=== PATIENT | male | born 1990 | race Native Hawaiian/Other Pacific Islander ===

== ENCOUNTER 2022-09-14 14:48 | Emergency (ER) | payer OTHER, SELFPAY ==
[2022-09-14] VITALS (8 sets, daily range): BP systolic 107–142; BP diastolic 74–88; PULSE 67–97; RESP 18; TEMP 36.6; O2SAT 95–98; BMI 35.5
--- NOTE | 2022-09-14 15:11 | CRLHL7_ITS ---
For Patients: As a result of the Century Cures Act, medical imaging exams and procedure reports are released immediately into your electronic medical record. You may view this report before your referring provider. If you have questions, please contact your health care provider. Indication: Lower cheek pain radiating to back of neck Technique: Volumetric multidetector CT images of the cervical soft tissues were obtained after the administration of low osmolar intravenous contrast. 100 cc Isovue 370 low osmolar intravenous contrast Comparison: None available. Findings: The partially visualized brain parenchyma is normal in attenuation without evidence of abnormal enhancement. The orbits and their contents are within normal limits. The paranasal sinuses are clear. The mastoid air cells are clear. The nasopharynx is unremarkable. The fossae of Rosenmuller are clear. There is trace mucosal prominence of the palatine tonsils without evidence of peritonsillar fluid collection. There is mild mucosal hypertrophy at the base of tongue and lingual mucosa. There is minimal left perimandibular superficial soft tissue swelling without evidence of discrete mass or obvious rim enhancing fluid. The vocal folds are nonthickened with symmetrical appearance. The thyroid gland is normal in attenuation. There are moderately enlarged left greater than right II and I lymph nodes. The jugular veins are patent. The carotid arteries demonstrate no significant atherosclerotic narrowing. The lung apices are clear. The cervical vertebral body heights are grossly maintained with mild straightening the normal cervical lordosis. There is no significant spondylolisthesis. Impression: Mild left perimandibular superficial soft tissue swelling without obvious adjacent apical root abscess or dental caries. Finding could represent minimal superficial cellulitis of the left facial subcutaneous soft tissues. Mild nonspecific thickening of the oropharyngeal and hypopharyngeal mucosa which may represent minimal pharyngitis changes. Reactive left greater than right cervical lymph nodes are appreciated without significant pathologic adenopathy. No evidence of rim enhancing fluid collection or mass. Please note that all CT scans at this facility use dose modulation, iterative reconstruction, and/or weight-based dosing when appropriate to reduce radiation dose to as low as reasonably achievable. Dictated by Owen Haddad MD @ 09/14/2022 4:53:40 PM (Electronically Signed)
--- NOTE | 2022-09-14 15:21 | ED_ITS ---
HPI - General Adult General Chief complaint: Unspecified Complaint, Adult Stated complaint: Can't feel half of face Time Seen by Provider: 09/14/22 15:05 Source: patient Mode of arrival: ambulatory Limitations: no limitations History of Present Illness HPI narrative: 32-year-old male coming in today complaining of pale the side of his face. He states that the pain started yesterday, located across the lower cheek on the left side. The entire area is so painful that it feels numb. He denies pain in his teeth. He says he does have difficult time opening closing the mouth secondary to discomfort in his cheek. No difficulty swallowing. No fevers or chills. Nothing seems to make it better or worse, it is constant. Again radiates across the lower cheek into his jaw down the superior part of his left neck. Patient is not take any medications. He denies any drug use, no tobacco. Denies any recent dental work. Related Data Home Medications Medication Instructions Recorded Confirmed ibuprofen 09/14/22 Allergies Allergy/AdvReac Type Severity Reaction Status Date / Time No Known Drug Allergies Allergy Verified 09/14/22 15:33 Review of Systems Status of ROS: Reports: 10 or more systems reviewed and unremarkable except as noted in History and below [facility] Social History Smoking Status: Never smoker How often do you have a drink containing alcohol: 2-4 times a month AUDIT-C Alcohol total score: 2 Exam Narrative: Exam Narrative: Well-nourished well-developed patient in no acute distress. Alert and oriented. Answers questions appropriately. Mood and affect are appropriate. Thoughts are goal oriented and rational. No tangential or magical thinking noted. Patient speaks in full sentences without needing to catch his breath. Voice is not slurred or pressured. Voice does not sound congested. HEENT: Normocephalic atraumatic. Pupils are equally round reactive to light. Extraocular muscles are intact. Conjunctivae are moist without any icterus noted. Moist mucous membranes. Posterior pharynx is normal. Soft palate without swelling or protrusion. Neck is soft without any lymphadenopathy or thyromegaly. No masses are appreciated. His teeth have normal appearance. His gums are without bogginess, swelling or erythema. Has tenderness to palpation of the buccal area where the gums meet the buccal mucosa. He also has some tenderness to palpation below the angle of the jaw. Patient is able to open and closed his mouth with good range of motion. Cardiovascular: Heart is regular rate and rhythm S1 and S2 are present without any murmurs. Lungs: Clear to auscultation bilaterally no wheezes rhonchi or rales are appreciated. Skin: Well perfused without any obvious rashes. Const: Vital Signs, click to edit/add: Vital Signs - 24 hr 09/14/22 14:54 Temperature 97.8 F Pulse Rate [Left P ulse Oximeter] 97 Respiratory Rate 18 Blood Pressure [Ri ght Upper Arm] 142/88 H Pulse Oximetry 97 Oxygen Delivery Me thod Room Air Course Course Hospital Course: Labs were drawn, were unremarkable aside from minimally elevated CRP 1.7. Given the amount of discomfort he was having, we did proceed with a soft tissue neck CT which did show evidence of superficial infection consistent with a superficial cellulitis of the soft tissues. No deeper infection was visualized. Rocephin IV given in the ER today. Vital Signs Vital signs: Initial Vital Signs Temperature 97.8 F 09/14/22 14:54 Temperature Source Temporal Artery Scan 09/14/22 14:54 Pulse Rate 97 09/14/22 14:54 Respiratory Rate 18 09/14/22 14:54 Blood Pressure 142/88 H 09/14/22 14:54 Blood Pressure Mean 106 H 09/14/22 14:54 Blood Pressure Position Semi-Fowlers 09/14/22 14:54 Pulse Oximetry 97 09/14/22 14:54 Oxygen Delivery Method Room Air 09/14/22 14:54 Vital Signs Temperature 97.8 F 09/14/22 14:54 Pulse Rate 97 09/14/22 14:54 Respiratory Rate 18 09/14/22 14:54 Blood Pressure 142/88 H 09/14/22 14:54 Pulse Oximetry 97 09/14/22 14:54 Oxygen Delivery Method Room Air 09/14/22 14:54 Temperature 97.8 F 09/14/22 14:54 Pulse Rate 97 09/14/22 14:54 Respiratory Rate 18 09/14/22 14:54 Blood Pressure 142/88 H 09/14/22 14:54 Pulse Oximetry 97 09/14/22 14:54 Oxygen Delivery Method Room Air 09/14/22 14:54 Medical Decision Making MDM Narrative Medical decision making narrative: Cellulitis. Will put the patient on Augmentin. I do want to check with primary care provider in the next 48 hours in certainly encouraged him to return to the ER if he is getting worse instead of better. Discussed about the potential of a deeper infection not yet materialized. Patient was agreeable and had no other questions. Lab Data Lab results reviewed: Yes I reviewed the patient's lab results Labs: Lab Results 09/14/22 Range/Units 15:25 WBC 8.10 (4.50-11.00) K/uL RBC 5.35 (4.30-5.90) m/uL Hgb 15.3 (13.5-17.5) gm/dL Hct 45.1 (37.0-53.0) % MCV 84 (80-100) fL MCH 29 (26-34) pg MCHC 34 (32-36) gm/dL RDW Coeff of Nigel 11.8 (11.5-15.5) % Plt Count 309 (140-440) K/uL Neut % (Auto) 72.6 H (42.0-72.0) % Lymph % (Auto) 20.9 (20-44) % Throckmorton % (Auto) 4.8 (0.0-11.0) % Eos % (Auto) 0.4 (0.0-7.0) % Baso % (Auto) 0.2 (0.0-3.0) % Neut # (Auto) 5.90 (1.7-7.0) K/uL Lymph # (Auto) 1.69 (0.90-2.90) K/uL Throckmorton # (Auto) 0.40 (0.00-0.90) K/UL Eos # (Auto) 0.03 (0.00-0.50) K/uL Baso # (Auto) 0.02 (0.00-0.30) K/uL ESR 12 (2-15) mm/hr Sodium 138 (135-149) mmol/L Potassium 4.2 (3.6-5.1) mmol/L Chloride 106 (96-114) mmol/L Carbon Dioxide 22 (20-32) mmol/L BUN 12 (5-24) mg/dL Creatinine 0.6 (0.5-1.5) mg/dL Estimated Creat Clear 156.55 Estimated GFR 130 ml/min Glucose 103 (60-115) mg/dL Lactate 0.9 (0.5-1.9) mmol/L Calcium 8.7 (8.4-10.6) mg/dL C-Reactive Protein 1.7 H (0.5-1.0) mg/dL Imaging Data Soft tissue neck CT: Attestation: I have reviewed the pertinent imaging results. Radiologist's impression: Volumetric multidetector CT images of the cervical soft tissues were obtained after the administration of low osmolar intravenous contrast. 100 cc Isovue 370 low osmolar intravenous contrast Comparison: None available. Findings: The partially visualized brain parenchyma is normal in attenuation without evidence of abnormal enhancement. The orbits and their contents are within normal limits. The paranasal sinuses are clear. The mastoid air cells are clear. The nasopharynx is unremarkable. The fossae of Rosenmuller are clear. There is trace mucosal prominence of the palatine tonsils without evidence of peritonsillar fluid collection. There is mild mucosal hypertrophy at the base of tongue and lingual mucosa. There is minimal left perimandibular superficial soft tissue swelling without evidence of discrete mass or obvious rim enhancing fluid. The vocal folds are nonthickened with symmetrical appearance. The thyroid gland is normal in attenuation. There are moderately enlarged left greater than right II and I lymph nodes. The jugular veins are patent. The carotid arteries demonstrate no significant atherosclerotic narrowing. The lung apices are clear. The cervical vertebral body heights are grossly maintained with mild straightening the normal cervical lordosis. There is no significant spondylolisthesis. Impression: Mild left perimandibular superficial soft tissue swelling without obvious adjacent apical root abscess or dental caries. Finding could represent minimal superficial cellulitis of the left facial subcutaneous soft tissues. Mild nonspecific thickening of the oropharyngeal and hypopharyngeal mucosa which may represent minimal pharyngitis changes. Reactive left greater than right cervical lymph nodes are appreciated without significant pathologic adenopathy. No evidence of rim enhancing fluid collection or mass. Discharge Plan Discharge Clinical Impression: Cellulitis Patient Disposition: Home, Self-Care Condition: Stable Additional Instructions: Ha todos los antibioticos danny lo prescrito. Deberias hacer un seguimineto con tu medico el lunes. Vuela a la swapna de emergencias si estas empeorando. Prescriptions: No Action ibuprofen Follow Up/Referrals: Provider,Not a Local [Primary Care Provider] - Stand Alone Forms: [email or web address] Info Instructions
[2022-09-14] MEDS: KETOROLAC 30 MG/ML inj IVP (15:34)
[2022-09-14 15:35] LABS: Lactate* 0.9 mmol/L (0.5-1.9)
[2022-09-14 15:37] LABS: Basophils Absolute Auto 0.02 K/uL (0.00-0.30); Basophils Percent Auto 0.2 % (0.0-3.0); Eosinophils Absolute Auto 0.03 K/uL (0.00-0.50); Eosinophils Percent Auto 0.4 % (0.0-7.0); Hematocrit 45.1 % (37.0-53.0); Hemoglobin* 15.3 gm/dL (13.5-17.5); Immature Granulocytes Abs Auto 0.09 K/uL (0.00-0.30); Immature Granulocytes Pct Auto 1.1 %; Lymphocytes Absolute Auto 1.69 K/uL (0.90-2.90); Lymphocytes Percent Auto 20.9 % (20-44); Mean Corpuscular HGB Conc 34 gm/dL (32-36); Mean Corpuscular Hemoglobin 29 pg (26-34); Mean Corpuscular Volume 84 fL (80-100); Monocytes Percent Auto 4.8 % (0.0-11.0); Neutrophils Percent Auto 72.6 % (42.0-72.0); Platelet Count* 309 K/uL (140-440); RDW Coefficient of Variation % 11.8 % (11.5-15.5); Red Blood Count 5.35 m/uL (4.30-5.90)
[2022-09-14 15:41] LABS: Slide Review Reflex No
[2022-09-14 15:50] LABS: Chloride* 106 mmol/L (96-114); Potassium* 4.2 mmol/L (3.6-5.1); Sodium* 138 mmol/L (135-149)
[2022-09-14 15:53] LABS: Creatinine* 0.6 mg/dL (0.5-1.5); Est. Creatinine Clearance* 156.55; Estimated Glomerular Filt Rate 130 ml/min
[2022-09-14 15:54] LABS: Blood Urea Nitrogen* 12 mg/dL (5-24); Calcium* 8.7 mg/dL (8.4-10.6); Carbon Dioxide* 22 mmol/L (20-32); Glucose* 103 mg/dL (60-115)
[2022-09-14 15:57] LABS: C Reactive Protein* 1.7 mg/dL (0.5-1.0)
[2022-09-14 16:15] LABS: Erythrocyte SedimentationRate* 12 mm/hr (2-15)
[2022-09-14] MEDS: cefTRIAXone 1 GM in 0.9 % SODIUM CHLORIDE Mini-bag 100 ML IVPB (17:19)
== END 2022-09-14 18:05 | disposition home or self-care (01) ==
PROVIDERS: Emergency Provider Family Medicine
DX: L03.90 Cellulitis, unspecified (principal)
CPT/HCPCS: 36415; 70491; 80048; 83605; 85025; 85651; 86140; 96365; 96375; 99284; J0696; J1885; Q9967

== ENCOUNTER 2023-03-27 15:13 | Outpatient (CLI) | payer OTHER, SELFPAY | END 2023-03-27 15:14 | disposition home or self-care (01) | LOC: AMB 04-03 16:05 | PROVIDERS: Visit Provider Student in an Organized Health Care Education/Training Program | DX: S09.90XA Unspecified injury of head, initial encounter (principal); S49.92XA Unspecified injury of left shoulder and upper arm, initial encounter; V49.49XA Driver injured in collision with other motor vehicles in traffic accident, initial encounter; Y92.410 Unspecified street and highway as the place of occurrence of the external cause | CPT/HCPCS: A0425; A0433 ==

== ENCOUNTER 2023-03-27 15:39 | Emergency (ER) | payer OTHER, SELFPAY ==
[2023-03-27] VITALS (16 sets, daily range): BP systolic 126–149; BP diastolic 84–105; PULSE 92–109; RESP 18; TEMP 36.7; O2SAT 97–100; BMI 32.3
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
[2023-03-27] MEDS: KETOROLAC 15 MG/ML inj IVP (17:30)
[2023-03-27] MEDS: ONDANSETRON 2 MG/ML inj 4 MG IVP (17:30)
[2023-03-27 17:37] LABS: Chloride* 99 mmol/L (96-114)
[2023-03-27 17:38] LABS: Albumin* 4.8 g/dL (3.3-5.0); Potassium* 3.6 mmol/L (3.6-5.1); Sodium* 136 mmol/L (135-149)
[2023-03-27 17:40] LABS: Anion Gap 12 mEq/L (7-15); Carbon Dioxide* 25 mmol/L (20-32); Creatinine* 0.7 mg/dL (0.5-1.5); Est. Creatinine Clearance* 132.92; Estimated Glomerular Filt Rate 123 ml/min
[2023-03-27 17:41] LABS: Alanine Aminotransferase* 97 U/L (4-50); Alkaline Phosphatase* 135 U/L (40-150); Aspartate Amino Transferase* 76 U/L (12-35); Bilirubin Total* 0.5 mg/dL (0.1-1.5); Blood Urea Nitrogen* 13 mg/dL (5-24); Calcium* 8.8 mg/dL (8.4-10.6); Glucose* 105 mg/dL (60-115); Total Protein* 8.2 g/dL (6.0-8.3)
[2023-03-27 17:42] LABS: Basophils Absolute Auto 0.02 K/uL (0.00-0.30); Basophils Percent Auto 0.3 % (0.0-3.0); Eosinophils Absolute Auto 0.02 K/uL (0.00-0.50); Eosinophils Percent Auto 0.3 % (0.0-7.0); Hematocrit 43.5 % (37.0-53.0); Hemoglobin* 15.2 gm/dL (13.5-17.5); Immature Granulocytes Abs Auto 0.05 K/uL (0.00-0.30); Immature Granulocytes Pct Auto 0.6 %; Lymphocytes Absolute Auto 1.82 K/uL (0.90-2.90); Lymphocytes Percent Auto 22.9 % (20-44); Mean Corpuscular HGB Conc 35 gm/dL (32-36); Mean Corpuscular Hemoglobin 29 pg (26-34); Mean Corpuscular Volume 84 fL (80-100); Neutrophils Absolute Auto 5.63 K/uL (1.7-7.0); Neutrophils Percent Auto 70.9 % (42.0-72.0); Platelet Count* 331 K/uL (140-440); RDW Coefficient of Variation % 12.1 % (11.5-15.5); Red Blood Count 5.19 m/uL (4.30-5.90); White Blood Count* 7.94 K/uL (4.50-11.00)
[2023-03-27 17:51] LABS: Slide Review Reflex No
[2023-03-27 17:52] LABS: Troponin I* < 0.01 ng/mL (0.01-0.04)
== END 2023-03-27 18:08 | disposition home or self-care (01) ==
PROVIDERS: Emergency Provider Emergency Medicine
DX: S09.90XA Unspecified injury of head, initial encounter (principal); M25.512 Pain in left shoulder
CPT/HCPCS: 36415; 70450; 71260; 72125; 73030; 80048; 80076; 84484; 85025; 93005; 94761; 96374; 96375; 99284; 99291; T1013; G0390; J1885; J2405; Q9967